=== PATIENT | male | born 1995 | race Caucasian/White ===

== ENCOUNTER 2018-07-12 15:08 | Outpatient (CLI) | payer OTHER ==
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
== END 2018-07-12 15:09 | disposition home or self-care (01) ==
LOC: BICRAD 15:08
DX: M54.2 Cervicalgia (principal); M25.569 Pain in unspecified knee; W19.XXXA Unspecified fall, initial encounter
CPT/HCPCS: 72040